=== PATIENT | male | born 1995 | race Caucasian/White ===

== ENCOUNTER → 2022-12-27 13:00 | Outpatient (CLI) | payer OTHER, SELFPAY ==
--- NOTE | 2022-12-27 13:35 | PC.NURSE ---
Pre and Post Spirometry completed. Albuterol 0.083% given via [facility]N, per protocol, Pt tolerated tx well.
== END ==
PROVIDERS: PCP Nurse Practitioner Family; Visit Provider Nurse Practitioner Family
DX: R06.09 Other forms of dyspnea (principal); J45.909 Unspecified asthma, uncomplicated
CPT/HCPCS: 94060

== ENCOUNTER 2023-11-05 19:05 | Outpatient (CLI) | payer OTHER, SELFPAY ==
[2023-11-05 22:31] LABS: Amphetamine/Metha Screen,Urine Negative ng/ml (<1000)
[2023-11-05 22:35] LABS: Barbiturates Screen,Urine Negative ng/ml (<200)
[2023-11-05 22:36] LABS: Benzodiazepines Screen,Urine Negative ng/ml (<200)
[2023-11-05 22:37] LABS: Cocaine Screen,Urine Negative ng/ml (<300); Methadone Screen,Urine Negative ng/ml (<300)
[2023-11-05 22:38] LABS: Opiate Screen,Urine Negative ng/ml (<300)
[2023-11-05 22:50] LABS: Phencyclidine Screen,Urine Negative ng/ml (<25)
[2023-11-05 23:09] LABS: Cannabinoid Screen,Urine Negative ng/ml (<50)
== END 2023-11-05 23:59 ==
LOC: LAB.DROPOF 19:06
PROVIDERS: PCP Nurse Practitioner Acute Care; Visit Provider Nurse Practitioner Acute Care
DX: Z79.899 Other long term (current) drug therapy (principal)
CPT/HCPCS: 80307